=== PATIENT | male | born 1955 | race Caucasian/White ===

== ENCOUNTER → 2021-04-12 10:02 | Outpatient (BNVA) | payer OTHER, SELFPAY | PROVIDERS: Family Provider Family Medicine; Visit Provider Internal Medicine | DX: Z01.812 Encounter for preprocedural laboratory examination (principal); K51.90 Ulcerative colitis, unspecified, without complications; Z20.822 Contact with and (suspected) exposure to COVID-19 | CPT/HCPCS: 87635 ==

== ENCOUNTER 2021-04-16 08:28 | Day surgery (SDC) | payer OTHER, MEDICARE, MEDICAID, SELFPAY ==
--- NOTE | 2021-04-16 09:01 | ANES.PREANE2 ---
Pre-Anesthetic Assessment Pre-Anesthetic Assessment: Height/Weight: Height 1.8 m Preop Diagnosis: UC Proposed Procedure: Operation Date: 04/16/21 10:00 Proposed Procedures p Colonoscopy 38034 K51.90(Not Applicable) - Marquis Mcbride MD Was Beta Ehlene taken within 24 hours: N/A Was Clonidine taken within 24 hours: N/A Social: Social History: No alcohol and No tobacco Exam: Pre-Anes Outpt Exam: alert, oriented x 3, clear to auscultation bilaterally and regular rate & rhythm Airway: Submandibular: WNL Cervical ROM: WNL MP: 2 Dentition: False CV/HEM: CV/HEM: CAD and HTN GI: GI: GERD Comments: UC Metabolic: Metabolic: DM, Hyperlipidemia, Morbid obesity and Thyroid Anesthetic Plan: ASA status: 3 Anesthesia: MAC Risk of > 500 ml blood loss (7ml/kg in children): No PFSH Anesthesia PFSH: Medical History (Updated 04/12/21 @ 09:42 by Marquis Mcbride MD) Diabetes Hyperlipidemia Hypertension Ulcerative colitis Surgical History History of appendectomy 2005 History of colonoscopy 2019 Family History Father Cancer Grandmother Diabetes Other Hypertension Denies family history of CAD (coronary artery disease) Dementia Lung disease Stroke Social History Smoking and tobacco status: former smoker Second hand smoke exposure: No Alcohol intake: current Alcohol intake frequency: few times a month Desire information about alcohol rehabilitation?: No Lives independently: Yes Household members: spouse Marital status: Data Anesthesia Cardiac Studies: No Data to Display
[2021-04-16 09:02] VITALS: PULSE 68; RESP 18; TEMP 36.1; O2SAT 99
[2021-04-16 09:03] VITALS: BMI 37.8
[2021-04-16] MEDS: sodium chloride 0.9% 1,000 ML 30 ML IV (09:20)
[2021-04-16 09:25] LABS: Glucose Point of Care 139 mg/dL (70-110)
--- NOTE | 2021-04-16 10:27 | P.HP_ITS ---
Same Day Surgery H&P Indication for Procedure/HPI DATE OF PROCEDURE: April 16, 2021 CHIEF COMPLAINT/INDICATIONFOR SURGICAL PROCEDURE: Ulcerative colitis PREOP DIAGNOSIS: UC PLANNED PROCEDRUE: Operation Date: 04/16/21 10:00 Proposed Procedures p Colonoscopy 66312 K51.90(Not Applicable) - Marquis Mcbride MD Medications/Allergies* Home Medications Medication Instructions Recorded Confirmed Type aspirin 81 mg tablet,delayed 81 mg PO DAILY 04/02/21 04/13/21 History release cetirizine 10 mg tablet 10 mg PO DAILY PRN 04/02/21 04/13/21 History gabapentin 100 mg capsule 100 mg PO TID 04/02/21 04/13/21 History glipizide 10 mg tablet 10 mg PO DAILY 04/02/21 04/13/21 History glucose 4 gram chewable tablet 16 g PO Q15M PRN tab 04/02/21 04/13/21 History insulin glargine 100 unit/mL (3 18 unit SUBCUT DAILY ml 04/02/21 04/13/21 History mL) subcutaneous pen isosorbide mononitrate 60 mg 60 mg PO DAILY 04/02/21 04/13/21 History tablet,extended release 24 hr levothyroxine 150 mcg tablet 150 mcg PO DAILY 04/02/21 04/13/21 History metoprolol tartrate 100 mg tablet 50 mg PO BID tab 04/02/21 04/13/21 History omega-3 fatty acids 1,000 mg 1,000 mg PO BID 04/02/21 04/13/21 History capsule omeprazole 20 mg capsule,delayed 40 mg PO DAILY cap 04/02/21 04/13/21 History release simvastatin 80 mg tablet 80 mg PO DAILY 04/02/21 04/13/21 History spironolactone 25 mg tablet 25 mg PO DAILY 04/02/21 04/13/21 History tamsulosin 0.4 mg capsule 0.4 mg PO DAILY 04/02/21 04/13/21 History Allergies/Adverse Reactions Allergy/AdvReac Type Severity Reaction Status Date / Time metformin Allergy Unknown Unknown Verified 04/12/21 09:01 Penicillins Allergy Unknown Unknown Verified 04/12/21 09:01 Sulfa (Sulfonamide Allergy Unknown Unknown Verified 04/12/21 09:01 Antibiotics) terazosin Allergy Unknown Unknown Verified 04/12/21 09:01 Current Medications: Generic Name Dose Route Start Last Admin Trade Name Windy PRN Reason Stop Dose Admin Sodium Chloride 1,000 mls @ 30 mls/hr 04/16/21 09:00 04/16/21 09:20 Sodium Chloride 0.9% IV 04/17/21 08:59 30 mls/hr .Q24H DONNELL Administration Pertinent History/Comorbid Conditions* Medical History (Updated 04/12/21 @ 09:42 by Marquis Mcbride MD) Diabetes Hyperlipidemia Hypertension Ulcerative colitis Surgical History (Updated 04/02/21 @ 10:54 by Gilberto Smith MD) History of appendectomy 2005 History of colonoscopy 2019 Family History (Updated 04/02/21 @ 10:19 by Cheryl Amaro) Diabetes Grandmother Cancer Father Hypertension Denies family history of CAD (coronary artery disease) Dementia Lung disease Stroke Social History Smoking and tobacco status: former smoker Second hand smoke exposure: No Alcohol intake: current Alcohol intake frequency: few times a month Desire information about alcohol rehabilitation?: No Lives independently: Yes Household members: spouse Marital status: Pertinent Exam Findings alert, oriented x 3, clear to auscultation bilaterally, regular rate & rhythm, operative site marked and procedure specific exam findings Recommendations Surgery/Procedure today Coding Level of Care Code Acute Pediatric Acute Care Unit Nurse for Salma You
[2021-04-16 10:45] VITALS: BP 106/64; PULSE 58; RESP 16; TEMP 36.1; O2SAT 92
[2021-04-16 10:53] VITALS: BP 112/62; PULSE 53; RESP 16; O2SAT 98
--- NOTE | 2021-04-16 16:41 | ANE.PACU2 ---
Inpatient post-anesthesia follow up: Airway intact: Yes Vital signs: Temperature 97 F Pulse Rate 53 Respiratory Rate 16 Blood Pressure 112/62 Pulse Oximetry 98 Oxygen Delivery Me thod Room Air Oxygen Flow Rate Fraction of Inspir ed Oxygen Hydration adequate: Yes Nausea and vomiting: No Pain level: 1 Mental status: Baseline
== END 2021-04-16 11:20 | disposition home or self-care (01) ==
PROVIDERS: PCP Emergency Medicine Emergency Medical Services; Visit Provider Internal Medicine
PROC: 0DJD8ZZ Inspection of Lower Intestinal Tract, Via Natural or Artificial Opening Endoscopic (ICD-10-PCS; CPT 45378; principal; 2021-04-16 10:00)
DX: K51.311 Ulcerative (chronic) rectosigmoiditis with rectal bleeding (principal); K51.90 Ulcerative colitis, unspecified, without complications; Z79.82 Long term (current) use of aspirin; E11.9 Type 2 diabetes mellitus without complications; E78.5 Hyperlipidemia, unspecified; I10 Essential (primary) hypertension; Z79.4 Long term (current) use of insulin; Z87.891 Personal history of nicotine dependence; I25.10 Atherosclerotic heart disease of native coronary artery without angina pectoris; E66.01 Morbid (severe) obesity due to excess calories; Z68.37 Body mass index [BMI] 37.0-37.9, adult
CPT/HCPCS: 36416; 45380; 82962; 88305; 96360; J2704; J7030

== ENCOUNTER → 2021-05-07 11:05 | Day surgery (SDC) | payer OTHER, MEDICARE, MEDICAID, SELFPAY ==
[2021-05-07 11:37] VITALS: BP 132/66; PULSE 58; RESP 18; TEMP 36.1; O2SAT 99
== END ==
PROVIDERS: PCP Emergency Medicine Emergency Medical Services; Visit Provider Internal Medicine
DX: K51.90 Ulcerative colitis, unspecified, without complications (principal)
CPT/HCPCS: 96365; 96366; J7050; Q5104

== ENCOUNTER → 2021-05-21 10:48 | Day surgery (SDC) | payer OTHER, MEDICARE, MEDICAID, SELFPAY ==
[2021-05-21 11:03] VITALS: BP 126/63; PULSE 57; RESP 18; TEMP 37; O2SAT 97
== END ==
PROVIDERS: PCP Emergency Medicine Emergency Medical Services; Visit Provider Internal Medicine
DX: K51.90 Ulcerative colitis, unspecified, without complications (principal)
CPT/HCPCS: 96365; J7050; Q5104

== ENCOUNTER 2021-06-17 18:24 | Emergency (ER) | payer MEDICARE, MEDICAID, SELFPAY ==
[2021-06-17 18:36] VITALS: PULSE 83; RESP 83; TEMP 36.9; O2SAT 97; BMI 40.6
--- NOTE | 2021-06-17 18:46 | ED_ITS ---
HPI - Male Genitourinary General: Chief complaint: Urogenital-Male Stated complaint: blood in urine Time Seen by Provider: 06/17/21 18:46 History of Present Illness: HPI Narrative: 65-year-old male patient comes in today with complaints of blood in urine. Patient noted that this evening. Patient also complains of some right flank pain. Patient has a history of some BPH which he takes medication for. Patient reports some urinary frequency. Patient denies any nausea or fever. Patient appears well. Patient appears no acute distress. Patient does have a history of ulcerative colitis, hypertension, diabetes mellitus Associated symptoms: Reports hematuria Review of Systems General: Reports: 10 or more systems reviewed and unremarkable except in HPI and below : Reports: hematuria PFSH ED PFSH: Medical History Diabetes Hyperlipidemia Hypertension Ulcerative colitis Surgical History History of appendectomy 2004 History of colonoscopy 2019 Family History Father Cancer Grandmother Diabetes Other Hypertension Denies family history of CAD (coronary artery disease) Dementia Lung disease Stroke Social History Smoking and tobacco status: former smoker Second hand smoke exposure: No Alcohol intake: current Alcohol intake frequency: few times a month Desire information about alcohol rehabilitation?: No Lives independently: Yes Household members: spouse Marital status: Physical Exam Const: COMMON NORMALS: no acute distress and patient oriented x3 GENERAL APPEARANCE: cooperative HENMT: COMMON NORMALS: normocephalic and Normal external nose present HEAD & SCALP: normal to inspection and normocephalic NOSE: Normal external nose present Eye: GENERAL EYE: appearance normal, both eyes and all related structures Neck/C-Spine: COMMON NORMALS: full ROM Chest: COMMONS NORMALS: normal inspection of the chest Resp: COMMON NORMALS: normal respiratory effort EFFORT & INSPECTION: Yes able to speak in complete sentences Cardio: COMMON NORMALS: regular rate and regular rhythm RATE: regular rate RHYTHM: regular rhythm GI: COMMON NORMALS: non-tender : BLADDER/KIDNEY EXAM: Yes CVA tenderness on the right Back/Pelvis: COMMON NORMALS: thoracic and lumbar spine normal to inspection GENERAL BACK: Yes CVA tenderness Extremity: COMMON NORMALS: normal to inspection Neuro: COMMON NORMALS: patient oriented x3 and moves all extremities Psych: COMMON NORMALS: mental status grossly normal and cooperative Skin: COMMON NORMALS: no rashes or lesions noted GENERAL SKIN EXAM: no rashes or lesions noted Course Vital Signs: Vital signs: Vital Signs Temperature 98.2 F 06/17/21 20:05 Pulse Rate 64 06/17/21 20:05 Respiratory Rate 16 06/17/21 20:05 Blood Pressure 142/66 06/17/21 20:05 Pulse Oximetry 97 06/17/21 20:05 MDM - Male MDM Narrative: Medical decision making narrative: 65-year-old male patient comes in today with complaints of blood in his urine. Patient also reports some discomfort with urination. On exam abdomen soft nontender. Bowel sounds are present. Patient does have some right CVA tenderness. Differential diagnosis includes but not limited to cystitis, renal calculi, bladder carcinoma. Laboratory values noted a white count of 15.2. CMP was unremarkable. CT of the abdomen and pelvis noted some bladder wall thickening and a congenital abnormality of the bladder, urachal remnant. Urinalysis had a large amount of red blood cells and culture was submitted. Patient was started on Cipro 500 twice a day for 7 days. Patient was recommended to follow-up urology for further evaluation of cystitis with hematuria and abnormalities on CT scan. Patient reported understanding and agreed to plan. Lab Data: Labs: Lab Results 06/17/21 06/17/21 06/17/21 18:45 18:45 18:45 WBC 15.2 10^3/uL H 10 ^3/uL (4.0-10.0) RBC 4.91 10^6/uL 10^6 /uL (4.1-5.3) Hgb 14.2 g/dL g/dL (11.7-16.6) Hct 44.4 % % (42.0-52.0) MCV 90.4 fl fl (80-94) MCH 28.9 pg pg (28.0-34.0) MCHC 32.0 g/dL g/dL (30.0-36.0) RDW 15.4 % H % (12.1-15.1) Plt Count 244 10^3/cmm 10^3 /cmm (130-400) MPV 11.5 fL H fL (7.4-10.4) Neut % (Auto) 74.3 % % Lymph % (Auto) 15.4 % % [place] % (Auto) 7.1 % % Eos % (Auto) 2.4 % % Baso % (Auto) 0.5 % % Neut # (Auto) 11.30 10^3/uL H 1 0^3/uL (1.8-7.7) Lymph # (Auto) 2.3 10^3/uL 10^3/ uL (0.8-4.8) [place] # (Auto) 1.1 10^3/uL H 10^ 3/uL (0.2-0.9) Eos # (Auto) 0.4 10^3/uL 10^3/ uL (0.0-0.8) Baso # (Auto) 0.1 10^3/uL 10^3/ uL (0.0-0.1) Nucleated RBC % (a uto) 0 % % Nucleated RBCs # 0.0 /100WBC /100W BC Sodium 133 mmol/L L mmol /L (136-145) Potassium 4.1 mmol/L mmol/L (3.5-5.1) Chloride 97 mmol/L L mmol/ L (98-107) Carbon Dioxide 25 mmol/L mmol/L (22-29) Anion Gap 15.1 (5-19) BUN 13 mg/dL mg/dL (8-23) Creatinine 0.9 mg/dL mg/dL (0.7-1.2) GFR Calculation 85.2 mL/min L mL/ min (90-130) Glucose 164 mg/dL H mg/dL (65-115) Calculated Osmolal ity 280 mOsm/kg L mOs m/kg (285-295) Calcium 9.0 mg/dL mg/dL (8.5-10.5) Total Bilirubin 0.3 mg/dL mg/dL (0.15-1.2) AST 27 U/L U/L (0-40) ALT 28 U/L U/L (0-41) Alkaline Phosphata se 76 IU/L IU/L (40-130) Total Protein 7.8 g/dL g/dL (6.6-8.7) Albumin 4.2 g/dL g/dL (3.5-5.2) Globulin 3.6 g/dL g/dL (1.3-4.6) Urine Color Red (Yellow) Urine Appearance Bloody A (CLEAR) Urine pH 5 (5-7) Ur Specific Gravit y 1.020 (1.005-1.030) Urine Protein 3+ H (Negative) Urine Glucose (UA) Norm (Normal) Urine Ketones Negative (Negative) Urine Blood 3+ H (Negative) Urine Nitrate Negative (Negative) Urine Bilirubin Neg (Negative) Urine Urobilinogen Norm mg/dL mg/dL (Negative) Ur Leukocyte Desirae ase Negative (Negative) Urine RBC Too numerous to c nt /hpf H /hpf (0-2) Urine WBC 0-4 /hpf H /hpf (0-5) Ur Squamous Epith Cells None /hpf /hpf (0-5) Amorphous Sediment Not Reportable Urine Bacteria 2+ /hpf H /hpf (NONE) Discharge Plan Discharge Patient Disposition: Home Clinical Impression: Cystitis Hematuria Qualifiers: Hematuria type: unspecified type Qualified Code(s): R31.9 - Hematuria, uns pecified Condition: Stable Prescriptions: New Cipro 500 mg tablet 500 mg PO BID Qty: 14 RF: 0 No Action mesalamine 1.2 gram tablet,delayed release (DR/EC) 4.8 g PO DAILY Qty: 120 RF: 6 glucose 4 gram tablet,chewable 16 g PO Q15M PRN (Reason: Hypoglycemia) RF: 0 insulin glargine 100 unit/mL (3 mL) insulin pen 18 unit SUBCUT DAILY RF: 0 aspirin [Adult Aspirin Regimen] 81 mg tablet,delayed release (DR/EC) 81 mg PO DAILY RF: 0 cetirizine 10 mg tablet 10 mg PO DAILY PRN (Reason: Allergy Symptoms) RF: 0 omega-3 fatty acids [Fish Oil Concentrate] 1,000 mg capsule 1,000 mg PO BID RF: 0 gabapentin 100 mg capsule 100 mg PO TID RF: 0 glipizide 10 mg tablet 10 mg PO DAILY RF: 0 isosorbide mononitrate 60 mg tablet extended release 24 hr 60 mg PO DAILY RF: 0 levothyroxine [Synthroid] 150 mcg tablet 150 mcg PO DAILY RF: 0 metoprolol tartrate 100 mg tablet 50 mg PO BID RF: 0 simvastatin 80 mg tablet 80 mg PO DAILY RF: 0 spironolactone 25 mg tablet 25 mg PO DAILY RF: 0 tamsulosin [Flomax] 0.4 mg capsule 0.4 mg PO DAILY RF: 0 Renflexis 100 mg Recon Soln 300 mg IV DIRECTED RF: 0 Discharge Orders: Discharge ED (Routine); Ordered 06/17/21 Ordered By: Cj Corea Referrals: Marquis Mcbride MD [Primary Care Provider] - Discharge Diet: Usual diet Discharge Activity: Increase activity as tolerated Patient Instructions: Urinary Tract Infection in Men (ED), Opioid Safety Activity Restrictions/Additional Instructions: Home and rest. Drink plenty of fluids. Antibiotic as directed. Follow-up with urologist for further evaluation regarding the hematuria and abnormalities on the CT. Return to the ER for new concerns. Coding Level of Care Code ED Clam Shucking Machine Tender for Peteg Fwd Exam Comprehensive
[2021-06-17 18:52] VITALS: BP 150/83; PULSE 82; RESP 16; TEMP 36.9; O2SAT 95
--- NOTE | 2021-06-17 18:53 | CTR_ITS ---
PROCEDURE INFORMATION: Exam: CT Abdomen And Pelvis Without Contrast Exam date and time: 06/17/2021 6:53 PM Age: 65 years old Clinical indication: Prior surgery; Surgery date: 6+ months; Surgery type: Appy; Patient HX: C/O R flank pain and gross hematuria; Additional info: Right flank pain, hematuria TECHNIQUE: Imaging protocol: Computed tomography of the abdomen and pelvis without contrast. Radiation optimization: All CT scans at this facility use at least one of these dose optimization techniques: automated exposure control; mA and/or kV adjustment per patient size (includes targeted exams where dose is matched to clinical indication); or iterative reconstruction. COMPARISON: CT abdomen pelvis w con* [id number] 02/21/2015 3:34 PM RADIATION DOSE METRICS: Total DLP (mGy-cm): 1846.26 FINDINGS: Liver: Unremarkable.No mass. Gallbladder and bile ducts: Normal. No calcified stones. No ductal dilation. Pancreas: Normal. No ductal dilation. Spleen: The spleen is normal. Adrenal glands: The adrenal glands are normal. Kidneys and ureters: There is no evidence of hydronephrosis. There is no evidence of renal calcifications. No calculi are identified in the ureters or bladder. Stomach and bowel: There is no evidence of intestinal perforation or obstruction. The wall of the distal colon is mildly thickened but collapsed. There is lack of normal haustral pattern with stove pipe appearance of the distal colon that may indicate chronic ulcerative colitis. No wall thickening or induration of the pericolonic fat to suggest active inflammatory bowel disease. There is a fat halo sign indicating fat in the wall of the distal colon which is identified with chronic ulcerative colitis, Crohn's disease or obesity. Appendix: No evidence of appendicitis. Intraperitoneal space: Unremarkable. No free air. No significant fluid collection. Vasculature: Unremarkable.No abdominal aortic aneurysm. Lymph nodes: Unremarkable.No enlarged lymph nodes. Urinary bladder: There is nonspecific bladder wall thickening. This may be related to cystitis versus incomplete distention. No discrete bladder mass. 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 This has an increased risk of malignancy. Reproductive: Unremarkable as visualized. Bones/joints: There is no acute bony abnormality. There is chronic appearing mild anterior wedging of L2. There is also mild degenerative retrolisthesis of L2 on L3 and L3 on L4. Soft tissues: There is a fat-containing umbilical hernia. There is mild induration of the subcutaneous fat of the lower abdominal wall that may reflect recent subcutaneous injections. CT/CT kidney stone 54790 IMPRESSION: 1. There is nonspecific bladder wall thickening. This may be related to cystitis versus incomplete distention. No discrete bladder mass. 2. 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 This has an increased risk of malignancy. 3. The distal colon has characteristics that may indicate that the patient has underlying chronic ulcerative colitis without evidence of active inflammatory changes at this time. Please see above. Radiation Dose CTDIVOL = (mGy): DLP = 1846.26 (mGy-cm)
[2021-06-17 19:08] LABS: Basophils # 0.1 10^3/uL (0.0-0.1); Basophils % 0.5 %; Eosinophils # 0.4 10^3/uL (0.0-0.8); Eosinophils % 2.4 %; Hematocrit 44.4 % (42.0-52.0); Hemoglobin 14.2 g/dL (11.7-16.6); Lymphocytes # 2.3 10^3/uL (0.8-4.8); Lymphocytes % 15.4 %; Mean Corpuscular Hemoglobin 28.9 pg (28.0-34.0); Mean Corpuscular Volume 90.4 fl (80-94); Mean Platelet Volume 11.5 fL (7.4-10.4); Monocytes # 1.1 10^3/uL (0.2-0.9); Monocytes % 7.1 %; Neutrophils % 74.3 %; Nucleated Red Blood Cells % 0 %; Platelet Count 244 10^3/cmm (130-400); Protein Urine 3+ (Negative); Red Blood Count 4.91 10^6/uL (4.1-5.3); Red Cell Distribution Width 15.4 % (12.1-15.1); Urine Appearance Bloody (CLEAR); Urine Color Red (Yellow); White Blood Count 15.2 10^3/uL (4.0-10.0); pH Urine 5 (5-7)
[2021-06-17 19:09] LABS: Add Urine Microscopic? YES; Bilirubin Urine Neg (Negative); Blood Urine 3+ (Negative); Glucose Urine UA Norm (Normal); Ketones Urine Negative (Negative); Leukocyte Esterase Urine Negative (Negative); Nitrate Urine Negative (Negative); RBC Urine TOO NUMEROUS TO CNT /hpf (0-2); Urobilinogen Urine Norm (Negative)
[2021-06-17 19:11] LABS: Bacteria Urine 2+ /hpf; WBC Urine 0-4 /hpf (0-5)
[2021-06-17 19:12] LABS: Add Urine Culture? Yes
[2021-06-17 19:16] VITALS: BP 143/71; PULSE 71; RESP 16; O2SAT 96
[2021-06-17 19:28] LABS: Alanine Aminotransferase 28 U/L (0-41); Albumin Level 4.2 g/dL (3.5-5.2); Alkaline Phosphatase 76 IU/L (40-130); Aspartate Amino Transferase 27 U/L (0-40); Blood Urea Nitrogen 13 mg/dL (8-23); Carbon Dioxide 25 mmol/L (22-29); Chloride 97 mmol/L (98-107); Globulin 3.6 g/dL (1.3-4.6); Glomerular Filtration Rate 85.2 mL/min (90-130); Glucose 164 mg/dL (65-115); Osmolality Calculated 280 mOsm/kg (285-295); Sodium 133 mmol/L (136-145); Total Bilirubin 0.3 mg/dL (0.15-1.2); Total Protein 7.8 g/dL (6.6-8.7)
[2021-06-17 19:33] LABS: Anion Gap 15.1 (5-19); Potassium 4.1 mmol/L (3.5-5.1)
[2021-06-17 20:05] VITALS: BP 142/66; PULSE 64; RESP 16; TEMP 36.8; O2SAT 97
[2021-06-17] MEDS: ciprofloxacin 500 mg Tablet PO (20:24)
[2021-06-17 20:49] VITALS: BP 153/87; PULSE 68; RESP 18; TEMP 37.2; O2SAT 96
--- NOTE | 2021-06-18 10:56 | DCPLANNER ---
strategic development manager had message to schedule a follow up appointment for patient with Dr. Ryan. strategic development manager called the office of Dr. Ryan, spoke with Jaylen, gave clinic patients information. strategic development manager was told that patients information would be printed and reviewed. Clinic will call patient with appointment information.
--- NOTE | 2021-06-22 08:05 | DCPLANNER ---
Patient has a follow up appointment scheduled for Tuesday, June 29, 2021 at 10:[address] Ryan. Clinic will call patient with appointment information.
--- NOTE | 2021-08-02 14:29 | DCPLANNER ---
Patient had a follow up appointment scheduled for 06.29.[address] Ryan - patient did attend appointment.
== END 2021-06-17 20:52 | disposition home or self-care (01) ==
PROVIDERS: Emergency Provider Nurse Practitioner Family; PCP Internal Medicine
DX: N30.91 Cystitis, unspecified with hematuria (principal); Z79.82 Long term (current) use of aspirin; Z79.4 Long term (current) use of insulin; E11.9 Type 2 diabetes mellitus without complications; E78.5 Hyperlipidemia, unspecified; I10 Essential (primary) hypertension; Z87.891 Personal history of nicotine dependence
CPT/HCPCS: 74176; 80053; 81001; 85025; 87077; 87086; 87186; 99283

== ENCOUNTER → 2021-06-18 11:41 | Day surgery (SDC) | payer OTHER, MEDICARE, MEDICAID, SELFPAY ==
[2021-06-18 12:05] VITALS: BP 107/63; PULSE 66; RESP 18; TEMP 36.6; O2SAT 96; BMI 38.7
== END ==
PROVIDERS: PCP Internal Medicine; Visit Provider Internal Medicine
DX: K51.90 Ulcerative colitis, unspecified, without complications (principal)
CPT/HCPCS: 96365; 96366; J7050; Q5104

== ENCOUNTER → 2021-06-29 11:44 | Outpatient (BNVA) | payer MEDICARE, MEDICAID, SELFPAY | PROVIDERS: PCP Internal Medicine; Visit Provider Urology | DX: N30.90 Cystitis, unspecified without hematuria (principal); R31.0 Gross hematuria | CPT/HCPCS: 81003; 87086; 88112 ==

== ENCOUNTER → 2021-07-02 11:07 | Day surgery (SDC) | payer MEDICARE, MEDICAID, SELFPAY ==
[2021-07-02 11:22] VITALS: BMI 38.7
== END ==
PROVIDERS: PCP Internal Medicine; Visit Provider Internal Medicine
DX: K51.90 Ulcerative colitis, unspecified, without complications (principal)
CPT/HCPCS: 96365; 96366; J7050; Q5104

== ENCOUNTER → 2021-08-27 10:50 | Day surgery (SDC) | payer MEDICARE, MEDICAID, SELFPAY ==
[2021-08-27 11:20] VITALS: BP 146/77; PULSE 55; RESP 18; TEMP 36.4; O2SAT 95; BMI 36.2
== END ==
PROVIDERS: PCP Internal Medicine; Visit Provider Internal Medicine
DX: K51.90 Ulcerative colitis, unspecified, without complications (principal)
CPT/HCPCS: 96365; 96366; J7050; Q5104

== ENCOUNTER → 2021-10-22 11:12 | Day surgery (SDC) | payer MEDICARE, MEDICAID, SELFPAY ==
[2021-10-22 11:48] VITALS: BP 157/94; PULSE 63; RESP 18; TEMP 36.9; O2SAT 96
== END ==
PROVIDERS: PCP Internal Medicine; Visit Provider Internal Medicine
DX: K51.90 Ulcerative colitis, unspecified, without complications (principal)
CPT/HCPCS: 96365; 96366; J7050; Q5104

== ENCOUNTER → 2021-12-17 12:24 | Day surgery (SDC) | payer MEDICARE, MEDICAID, SELFPAY ==
[2021-12-17 12:58] VITALS: BP 173/84; PULSE 64; RESP 18; TEMP 36.1; O2SAT 96
== END ==
PROVIDERS: PCP Internal Medicine; Visit Provider Internal Medicine
DX: K51.311 Ulcerative (chronic) rectosigmoiditis with rectal bleeding (principal)
CPT/HCPCS: 96365; 96366; J7050; Q5104

== ENCOUNTER → 2022-01-08 11:41 | Day surgery (SDC) | payer MEDICARE, MEDICAID, SELFPAY ==
[2022-01-08 11:56] VITALS: BP 149/70; PULSE 64; RESP 18; TEMP 36.3; O2SAT 97
== END ==
PROVIDERS: PCP Internal Medicine; Visit Provider Internal Medicine
DX: K51.311 Ulcerative (chronic) rectosigmoiditis with rectal bleeding (principal)
CPT/HCPCS: 96365; 96366; J7050; Q5104

== ENCOUNTER → 2022-02-13 10:13 | Day surgery (SDC) | payer MEDICARE, MEDICAID, SELFPAY ==
[2022-02-13 10:31] VITALS: BP 117/61; PULSE 58; RESP 18; TEMP 36.9; O2SAT 95; BMI 34.8
== END ==
PROVIDERS: PCP Internal Medicine; Visit Provider Internal Medicine
DX: K51.90 Ulcerative colitis, unspecified, without complications (principal)
CPT/HCPCS: 96365; 96366; J7050; Q5104

== ENCOUNTER → 2022-04-10 10:46 | Day surgery (SDC) | payer MEDICARE, MEDICAID, SELFPAY ==
[2022-04-10 11:04] VITALS: BP 124/67; PULSE 61; RESP 18; TEMP 36.8; O2SAT 95
== END ==
PROVIDERS: PCP Internal Medicine; Visit Provider Internal Medicine
DX: K51.311 Ulcerative (chronic) rectosigmoiditis with rectal bleeding (principal)
CPT/HCPCS: 96365; 96366; J7050; Q5104

== ENCOUNTER → 2022-04-17 07:42 | Day surgery (SDC) | payer MEDICARE, MEDICAID, SELFPAY ==
[2022-04-17] MEDS: vedolizumab 300 MG in sodium chloride 0.9% 250 ML 250 MG IV (08:00)
[2022-04-17 08:02] VITALS: BP 126/64; PULSE 56; RESP 18; TEMP 36.3; O2SAT 95
== END ==
PROVIDERS: PCP Internal Medicine; Visit Provider Internal Medicine
DX: K51.90 Ulcerative colitis, unspecified, without complications (principal)
CPT/HCPCS: 96365; J3380; J7050

== ENCOUNTER → 2022-04-24 11:31 | Day surgery (SDC) | payer MEDICARE, MEDICAID, SELFPAY ==
[2022-04-24] MEDS: vedolizumab 300 MG in sodium chloride 0.9% 250 ML 500 MG IV (11:56)
[2022-04-24 11:59] VITALS: BP 138/71; PULSE 63; RESP 18; TEMP 36.7; O2SAT 95
== END ==
PROVIDERS: PCP Internal Medicine; Visit Provider Internal Medicine
DX: K51.311 Ulcerative (chronic) rectosigmoiditis with rectal bleeding (principal)
CPT/HCPCS: 96365; J3380; J7050

== ENCOUNTER → 2022-05-29 11:11 | Day surgery (SDC) | payer MEDICARE, MEDICAID, SELFPAY ==
[2022-05-29] MEDS: vedolizumab 300 MG in sodium chloride 0.9% 250 ML 500 MG IV (11:28)
[2022-05-29 11:33] VITALS: BP 106/59; PULSE 54; RESP 18; TEMP 36.9; O2SAT 95
== END ==
PROVIDERS: PCP Internal Medicine; Visit Provider Internal Medicine
DX: K51.311 Ulcerative (chronic) rectosigmoiditis with rectal bleeding (principal)
CPT/HCPCS: 96365; J3380; J7050

== ENCOUNTER → 2022-06-12 11:31 | Day surgery (SDC) | payer MEDICARE, MEDICAID, SELFPAY ==
[2022-06-12] MEDS: vedolizumab 300 MG in sodium chloride 0.9% 250 ML 500 MG IV (11:44)
[2022-06-12 11:48] VITALS: BP 135/71; PULSE 55; RESP 18; TEMP 36.7; O2SAT 95
== END ==
PROVIDERS: PCP Internal Medicine; Visit Provider Internal Medicine
DX: K51.311 Ulcerative (chronic) rectosigmoiditis with rectal bleeding (principal)
CPT/HCPCS: 96365; J3380; J7050

== ENCOUNTER → 2022-08-07 11:29 | Day surgery (SDC) | payer MEDICARE, MEDICAID, SELFPAY ==
[2022-08-07] MEDS: vedolizumab 300 MG in sodium chloride 0.9% 250 ML 500 MG IV (11:44)
[2022-08-07 11:48] VITALS: BP 140/77; PULSE 70; RESP 18; TEMP 36.6; O2SAT 93
== END ==
PROVIDERS: PCP Internal Medicine; Visit Provider Internal Medicine
DX: K51.311 Ulcerative (chronic) rectosigmoiditis with rectal bleeding (principal)
CPT/HCPCS: 96365; J3380; J7050

== ENCOUNTER → 2022-09-11 11:13 | Outpatient (BNVA) | payer MEDICARE, MEDICAID, SELFPAY | PROVIDERS: PCP Family Medicine Adult Medicine; Visit Provider Emergency Medicine | DX: R39.9 Unspecified symptoms and signs involving the genitourinary system (principal); N10 Acute pyelonephritis | CPT/HCPCS: 81000; 87077; 87086; 87184 ==

== ENCOUNTER → 2022-10-02 11:38 | Day surgery (SDC) | payer MEDICARE, MEDICAID, SELFPAY ==
[2022-10-02 11:47] VITALS: BP 132/73; PULSE 74; RESP 16; TEMP 36.4; O2SAT 95
[2022-10-02] MEDS: vedolizumab 300 MG in sodium chloride 0.9% 250 ML 500 MG IV (11:57)
== END ==
PROVIDERS: PCP Family Medicine Adult Medicine; Visit Provider Internal Medicine
DX: K51.311 Ulcerative (chronic) rectosigmoiditis with rectal bleeding (principal)
CPT/HCPCS: 96365; J3380; J7050

== ENCOUNTER → 2022-11-12 07:45 | Outpatient (BNVA) | payer MEDICARE, MEDICAID, SELFPAY | PROVIDERS: PCP Family Medicine Adult Medicine; Visit Provider Family Medicine Adult Medicine | DX: E11.9 Type 2 diabetes mellitus without complications (principal); E78.5 Hyperlipidemia, unspecified; I10 Essential (primary) hypertension; K76.9 Liver disease, unspecified; E03.9 Hypothyroidism, unspecified; E66.9 Obesity, unspecified | CPT/HCPCS: 80053; 80061; 83036; 84443; 85025 ==

== ENCOUNTER → 2022-11-19 09:37 | Outpatient (BNVA) | payer MEDICARE, MEDICAID, SELFPAY | PROVIDERS: PCP Family Medicine Adult Medicine; Visit Provider Surgery | DX: K51.311 Ulcerative (chronic) rectosigmoiditis with rectal bleeding (principal) | CPT/HCPCS: 99203 ==

== ENCOUNTER → 2022-11-27 11:29 | Day surgery (SDC) | payer MEDICARE, MEDICAID, SELFPAY ==
[2022-11-27] MEDS: vedolizumab 300 MG in sodium chloride 0.9% 250 ML 500 MG IV (11:51)
[2022-11-27 11:54] VITALS: BP 129/77; PULSE 73; RESP 18; TEMP 36.6; O2SAT 97
== END ==
PROVIDERS: PCP Family Medicine Adult Medicine; Visit Provider Family Medicine Adult Medicine
DX: K51.311 Ulcerative (chronic) rectosigmoiditis with rectal bleeding (principal)
CPT/HCPCS: 96365; J3380; J7050

== ENCOUNTER 2022-12-25 05:26 | Day surgery (SDC) | payer MEDICARE, MEDICAID, SELFPAY ==
[2022-12-23 10:32] VITALS: BMI 37.5
[2022-12-25] MEDS: sodium chloride 0.9% 1,000 ML 30 ML IV (06:18)
[2022-12-25 06:21] VITALS: BP 121/65; PULSE 54; RESP 17; TEMP 36.1; O2SAT 95
[2022-12-25 06:23] LABS: Glucose Point of Care 161 mg/dL (70-110)
--- NOTE | 2022-12-25 06:48 | PM.HP ---
Providers/Chief Complaint Primary Care Provider: Darrin Jones MD Chief Complaint: K51.311 History of Present Illness Gerhard Carpio is a 67 year old male here for a screening colonoscopy Medications/Allergies Home Medications Medication Instructions Recorded Confirmed Last Taken Type glucose 4 gram chewable tablet 16 g PO Q15M PRN Hypoglycemia 04/02/21 12/23/22 11/27/22 History glipizide 10 mg tablet 20 mg PO BID 06/29/21 12/23/22 12/23/22 History aspirin 81 mg tablet,delayed 81 mg PO DAILY #90 tabs 11/25/22 12/23/22 12/23/22 Rx release (Adult Aspirin Regimen) cetirizine 10 mg tablet 10 mg PO DAILY PRN Allergy 11/25/22 12/23/22 12/23/22 Rx Symptoms #90 tabs empagliflozin 25 mg tablet 25 mg PO QAM #30 tabs 11/25/22 12/23/22 12/23/22 Rx (Jardiance) gabapentin 100 mg capsule 100 mg PO TID #90 caps 11/25/22 12/23/22 12/23/22 Rx insulin glargine 100 unit/mL (3 18 unit (0.18 mL) SUBCUT DAILY #15 11/25/22 12/23/22 12/23/22 Rx mL) subcutaneous pen mL isosorbide mononitrate 60 mg 60 mg PO BID #60 tabs 11/25/22 12/23/22 12/23/22 Rx tablet,extended release 24 hr levothyroxine 175 mcg tablet 175 mcg PO DAILY Low thyroid #30 11/25/22 12/23/22 12/23/22 Rx tabs metoprolol tartrate 100 mg tablet 50 mg PO BID #60 tabs 11/25/22 12/23/22 12/23/22 Rx simvastatin 80 mg tablet 80 mg PO DAILY #30 tabs 11/25/22 12/23/22 12/23/22 Rx tamsulosin 0.4 mg capsule (Flomax) 0.4 mg PO DAILY #30 caps 11/25/22 12/23/22 12/23/22 Rx vedolizumab 300 mg intravenous 300 mg IV .Q8w rectal bleeding #1 11/25/22 12/23/22 11/27/22 Rx solution (Entyvio) ea mesalamine 1.2 gram tablet,delayed 2.4 g PO DAILY #60 tabs 11/28/22 12/23/22 12/23/22 Rx release omeprazole 20 mg tablet,delayed 40 mg PO DAILY #60 tabs 12/04/22 12/23/22 12/23/22 Rx release omega-3 fatty acids-vitamin E 1 cap PO DAILY 12/23/22 12/23/22 12/23/22 History 1,000 mg capsule Allergies Allergy/AdvReac Type Severity Reaction Status Date / Time metformin Allergy Unknown Unknown Verified 12/23/22 10:07 Penicillins Allergy Unknown Unknown Verified 12/23/22 10:07 Sulfa (Sulfonamide Allergy Unknown Unknown Verified 12/23/22 10:07 Antibiotics) terazosin Allergy Unknown Unknown Verified 12/23/22 10:07 PFSH Acute PFSH: Medical History (Updated 12/25/22 @ 06:49 by Richardson Patterson DO) Benign prostatic hyperplasia Chronic liver disease Dental caries associated with enamel hypomineralization Diabetes Diabetic neuropathy associated with type 2 diabetes mellitus Esophageal reflux Former smoker Gastro-esophageal reflux disease with esophagitis Gross hematuria Hyperlipidemia Hypertension Hypothyroidism Obesity Ulcerative colitis Yeast dermatitis of penis Surgical History History of appendectomy 2005 History of colonoscopy 2019 Family History Father , AT AGE 72 Cancer Grandmother Diabetes Mother No problems noted. Other Hypertension Social History Smoking and tobacco status: former smoker Alcohol intake: current Alcohol intake frequency: holidays/special occasions only Marital status: Current occupational status: retired and disabled Vitals/I&O/Wt Last Vital Signs Temp 97.0 F L 12/25/22 06:21 Pulse 54 L 12/25/22 06:21 Resp 17 12/25/22 06:21 BP 121/65 12/25/22 06:21 Pulse Ox 95 12/25/22 06:21 O2 Del Method 12/25/22 06:21 Weight last 48 hrs Weight 269 lb A&P Assessment and plan (1) Colon cancer screening: Plan Colonoscopy Attestations Medical Necessity Statement*: Home Coding Level of Care Code Acute Code for Chg Fwd Diagnoses Colon cancer screening Z12.11
--- NOTE | 2022-12-25 06:51 | ANES.PREANE2 ---
Pre-Anesthetic Assessment Height/Weight: Height 1.8 m Weight 122.016 kg Temp Pulse Resp BP Pulse Ox O2 Del Method 97.0 F L 54 L 17 121/65 95 12/25/22 06:21 12/25/22 06:21 12/25/22 06:21 12/25/22 06:21 12/25/22 06:21 12/25/22 06:21 Preop Diagnosis: Hx ulcerative colitis Operation Date: 12/25/22 07:00 Proposed Procedures p 41104 colon K51.311(Not Applicable) - Richardson Patterson, DO Was Beta Helene taken within 24 hours: Yes Was Clonidine taken within 24 hours: N/A Last intake: Intake Last Liquid Date 12/24/22 Last Liquid Time 22:00 Last Solid Date 12/23/22 Last Solid Time 16:00 Social No alcohol and No tobacco Former smoker Airway Submandibular: within normal limits Cervical ROM: within normal limits Mallampati: Class II Dentition: false Comments: Comments: upper plate History/ROS No significant history except as noted and No significant complaints Pulmonary None reported CV/HEM Coronary Artery Disease, Hypertension and Myocardial Infarction None reported Hepatic None reported GI Gastroesophageal Reflux Disease Metabolic Diabetes Mellitus, Morbid Obesity and Thyroid Disease [facility] [place] None reported Neuropsych Neuropathy Anesthetic Plan ASA status: 3 Anesthesia: Anesthesia Evaluation and MAC Risk of > 500 ml blood loss (7ml/kg in children): No Medications/Allergies Home Medications Medication Instructions Recorded Confirmed Last Taken Type glucose 4 gram chewable tablet 16 g PO Q15M PRN Hypoglycemia 04/02/21 12/23/22 11/27/22 History glipizide 10 mg tablet 20 mg PO BID 06/29/21 12/23/22 12/23/22 History aspirin 81 mg tablet,delayed 81 mg PO DAILY #90 tabs 11/25/22 12/23/22 12/23/22 Rx release (Adult Aspirin Regimen) cetirizine 10 mg tablet 10 mg PO DAILY PRN Allergy 11/25/22 12/23/22 12/23/22 Rx Symptoms #90 tabs empagliflozin 25 mg tablet 25 mg PO QAM #30 tabs 11/25/22 12/23/22 12/23/22 Rx (Jardiance) gabapentin 100 mg capsule 100 mg PO TID #90 caps 11/25/22 12/23/22 12/23/22 Rx insulin glargine 100 unit/mL (3 18 unit (0.18 mL) SUBCUT DAILY #15 11/25/22 12/23/22 12/23/22 Rx mL) subcutaneous pen mL isosorbide mononitrate 60 mg 60 mg PO BID #60 tabs 11/25/22 12/23/22 12/23/22 Rx tablet,extended release 24 hr levothyroxine 175 mcg tablet 175 mcg PO DAILY Low thyroid #30 11/25/22 12/23/22 12/23/22 Rx tabs metoprolol tartrate 100 mg tablet 50 mg PO BID #60 tabs 11/25/22 12/23/22 12/23/22 Rx simvastatin 80 mg tablet 80 mg PO DAILY #30 tabs 11/25/22 12/23/22 12/23/22 Rx tamsulosin 0.4 mg capsule (Flomax) 0.4 mg PO DAILY #30 caps 11/25/22 12/23/22 12/23/22 Rx vedolizumab 300 mg intravenous 300 mg IV .Q8w rectal bleeding #1 11/25/22 12/23/22 11/27/22 Rx solution (Entyvio) ea mesalamine 1.2 gram tablet,delayed 2.4 g PO DAILY #60 tabs 11/28/22 12/23/22 12/23/22 Rx release omeprazole 20 mg tablet,delayed 40 mg PO DAILY #60 tabs 12/04/22 12/23/22 12/23/22 Rx release omega-3 fatty acids-vitamin E 1 cap PO DAILY 12/23/22 12/23/22 12/23/22 History 1,000 mg capsule Allergies Allergy/AdvReac Type Severity Reaction Status Date / Time metformin Allergy Unknown Unknown Verified 12/23/22 10:07 Penicillins Allergy Unknown Unknown Verified 12/23/22 10:07 Sulfa (Sulfonamide Allergy Unknown Unknown Verified 12/23/22 10:07 Antibiotics) terazosin Allergy Unknown Unknown Verified 12/23/22 10:07 Current Medications Generic Name Dose Route Start Last Admin Trade Name Freq PRN Reason Stop Dose Admin Sodium Chloride 1,000 mls @ 30 mls/hr 12/25/22 06:00 12/25/22 06:18 Sodium Chloride 0.9% IV 12/26/22 05:59 30 mls/hr .Q24H DONNELL Administration PFSH Anesthesia Medical History (Updated 12/25/22 @ 06:49 by Richardson Patterson DO) Benign prostatic hyperplasia Chronic liver disease Dental caries associated with enamel hypomineralization Diabetes Diabetic neuropathy associated with type 2 diabetes mellitus Esophageal reflux Former smoker Gastro-esophageal reflux disease with esophagitis Gross hematuria Hyperlipidemia Hypertension Hypothyroidism Obesity Ulcerative colitis Yeast dermatitis of penis Surgical History History of appendectomy 2004 History of colonoscopy 2019 Family History Father , AT AGE 72 Cancer Grandmother Diabetes Mother No problems noted. Other Hypertension Social History Smoking and tobacco status: former smoker Alcohol intake: current Alcohol intake frequency: holidays/special occasions only Marital status: Current occupational status: retired and disabled Data Anesthesia Cardiac Studies: No Data to Display
[2022-12-25 07:45] VITALS: BP 141/90; PULSE 65; RESP 20; TEMP 36.1; O2SAT 94
[2022-12-25 07:52] VITALS: BP 113/71; PULSE 66; RESP 20; O2SAT 97
--- NOTE | 2022-12-25 13:13 | ANE.PACU2 ---
Inpatient post-anesthesia follow up: Airway intact: Yes Vital signs: Temperature 97.0 F Pulse Rate 66 Respiratory Rate 20 Blood Pressure 113/71 Pulse Oximetry 97 Oxygen Delivery Me thod Nasal Cannula Oxygen Flow Rate 4 Fraction of Inspir ed Oxygen Hydration adequate: Yes Nausea and vomiting: No Pain level: 1 Mental status: Baseline
== END 2022-12-25 08:12 | disposition home or self-care (01) ==
PROVIDERS: PCP Family Medicine Adult Medicine; Visit Provider Surgery
PROC: 0DJD8ZZ Inspection of Lower Intestinal Tract, Via Natural or Artificial Opening Endoscopic (ICD-10-PCS; CPT 45378; principal; 2022-12-25 07:00)
DX: K51.311 Ulcerative (chronic) rectosigmoiditis with rectal bleeding (principal); K62.1 Rectal polyp; Z79.82 Long term (current) use of aspirin; Z79.84 Long term (current) use of oral hypoglycemic drugs; Z79.4 Long term (current) use of insulin; N40.0 Benign prostatic hyperplasia without lower urinary tract symptoms; E11.40 Type 2 diabetes mellitus with diabetic neuropathy, unspecified; Z87.891 Personal history of nicotine dependence; E78.5 Hyperlipidemia, unspecified; I10 Essential (primary) hypertension; E03.9 Hypothyroidism, unspecified; E66.01 Morbid (severe) obesity due to excess calories; Z68.37 Body mass index [BMI] 37.0-37.9, adult; I25.10 Atherosclerotic heart disease of native coronary artery without angina pectoris; K21.9 Gastro-esophageal reflux disease without esophagitis
CPT/HCPCS: 36416; 45385; 82962; 88305; J2704; J3490; J7030

== ENCOUNTER → 2023-01-07 12:17 | Outpatient (BNVA) | payer MEDICARE, MEDICAID, SELFPAY | PROVIDERS: PCP Family Medicine Adult Medicine; Visit Provider Surgery | DX: K51.311 Ulcerative (chronic) rectosigmoiditis with rectal bleeding (principal); K63.5 Polyp of colon | CPT/HCPCS: 99212 ==

== ENCOUNTER → 2023-01-22 11:22 | Day surgery (SDC) | payer MEDICARE, MEDICAID, SELFPAY ==
[2023-01-22] MEDS: vedolizumab 300 MG in sodium chloride 0.9% 250 ML 500 MG IV (11:43)
[2023-01-22 11:51] VITALS: BP 95/47; PULSE 54; RESP 18; TEMP 36.3; O2SAT 95
== END ==
PROVIDERS: PCP Family Medicine Adult Medicine; Visit Provider Internal Medicine
DX: K51.311 Ulcerative (chronic) rectosigmoiditis with rectal bleeding (principal); Z79.899 Other long term (current) drug therapy
CPT/HCPCS: 96365; J3380; J7050

== ENCOUNTER → 2023-03-13 09:56 | Outpatient (BNVA) | payer MEDICARE, MEDICAID, SELFPAY | PROVIDERS: PCP Family Medicine Adult Medicine; Visit Provider Podiatrist Foot & Ankle Surgery | DX: E11.49 Type 2 diabetes mellitus with other diabetic neurological complication (principal); M76.821 Posterior tibial tendinitis, right leg; M21.621 Bunionette of right foot; M21.622 Bunionette of left foot; Z79.4 Long term (current) use of insulin | CPT/HCPCS: 73600; 73630; 99204 ==

== ENCOUNTER → 2023-03-18 13:45 | Outpatient (BNVA) | payer MEDICARE, MEDICAID, SELFPAY | PROVIDERS: PCP Family Medicine Adult Medicine; Visit Provider Family Medicine Adult Medicine | DX: E11.49 Type 2 diabetes mellitus with other diabetic neurological complication (principal); E03.9 Hypothyroidism, unspecified; I10 Essential (primary) hypertension; E78.5 Hyperlipidemia, unspecified; N18.2 Chronic kidney disease, stage 2 (mild) | CPT/HCPCS: 80048; 83036; 84443 ==

== ENCOUNTER → 2023-03-19 11:30 | Day surgery (SDC) | payer MEDICARE, MEDICAID, SELFPAY ==
[2023-03-19] MEDS: vedolizumab 300 MG in sodium chloride 0.9% 250 ML 500 MG IV (11:47)
[2023-03-19 11:50] VITALS: BP 133/68; PULSE 52; RESP 18; TEMP 35.9; O2SAT 96
== END ==
LOC: GILAB 11:32
PROVIDERS: PCP Family Medicine Adult Medicine; Visit Provider Internal Medicine
DX: K51.311 Ulcerative (chronic) rectosigmoiditis with rectal bleeding (principal); Z79.899 Other long term (current) drug therapy
CPT/HCPCS: 96365; J3380; J7050

== ENCOUNTER → 2023-05-14 11:22 | Day surgery (SDC) | payer MEDICARE, MEDICAID, SELFPAY ==
[2023-05-14 11:42] VITALS: BP 124/64; PULSE 59; RESP 18; TEMP 36.6; O2SAT 97
[2023-05-14] MEDS: vedolizumab 300 MG in sodium chloride 0.9% 250 ML 500 MG IV (11:59)
== END ==
PROVIDERS: PCP Family Medicine Adult Medicine; Visit Provider Internal Medicine
DX: K51.311 Ulcerative (chronic) rectosigmoiditis with rectal bleeding (principal); Z79.899 Other long term (current) drug therapy
CPT/HCPCS: 96365; J3380; J7050

== ENCOUNTER → 2023-05-20 09:19 | Outpatient (BNVA) | payer MEDICARE, MEDICAID, SELFPAY | PROVIDERS: PCP Family Medicine Adult Medicine; Visit Provider Family Medicine Adult Medicine | DX: N18.2 Chronic kidney disease, stage 2 (mild) (principal); I10 Essential (primary) hypertension; K76.9 Liver disease, unspecified; E03.9 Hypothyroidism, unspecified; E11.49 Type 2 diabetes mellitus with other diabetic neurological complication; E11.9 Type 2 diabetes mellitus without complications | CPT/HCPCS: 80053; 83036; 84443 ==

== ENCOUNTER → 2023-07-07 11:19 | Day surgery (SDC) | payer MEDICARE, MEDICAID, SELFPAY ==
[2023-07-07] MEDS: vedolizumab 300 MG in sodium chloride 0.9% 250 ML 500 MG IV (11:33)
[2023-07-07 11:40] VITALS: BP 90/74; PULSE 58; RESP 18; TEMP 36.1; O2SAT 96
== END ==
PROVIDERS: PCP Family Medicine Adult Medicine; Visit Provider Internal Medicine
DX: K51.311 Ulcerative (chronic) rectosigmoiditis with rectal bleeding (principal)
CPT/HCPCS: 96365; J3380; J7050

== ENCOUNTER 2023-09-02 09:28 | Oncology outpatient (recurring) (ONCR) | payer MEDICARE, MEDICAID, SELFPAY ==
[2023-09-02 09:45] VITALS: BP 133/79; PULSE 62; RESP 18; TEMP 36.9; O2SAT 97
[2023-09-02] MEDS: vedolizumab 300 MG in sodium chloride 0.9% 250 ML 500 MG IV (10:44)
[2023-09-02 11:25] VITALS: BP 110/63; PULSE 53; RESP 16; TEMP 36.7; O2SAT 98
== END 2023-09-21 23:59 | disposition home or self-care (01) ==
PROVIDERS: PCP Family Medicine Adult Medicine; Visit Provider Family Medicine Adult Medicine
DX: K51.311 Ulcerative (chronic) rectosigmoiditis with rectal bleeding (principal)
CPT/HCPCS: 96413; J3380; J7050

== ENCOUNTER → 2023-10-07 10:01 | Outpatient (BNVA) | payer MEDICARE, MEDICAID, SELFPAY | PROVIDERS: PCP Family Medicine Adult Medicine; Visit Provider Family Medicine Adult Medicine | DX: E11.49 Type 2 diabetes mellitus with other diabetic neurological complication (principal); E03.9 Hypothyroidism, unspecified; M25.569 Pain in unspecified knee; G89.29 Other chronic pain; S89.91XA Unspecified injury of right lower leg, initial encounter; K51.90 Ulcerative colitis, unspecified, without complications; N18.2 Chronic kidney disease, stage 2 (mild); N40.0 Benign prostatic hyperplasia without lower urinary tract symptoms | CPT/HCPCS: 73562 ==

== ENCOUNTER → 2023-10-21 11:18 | Outpatient (BNVA) | payer MEDICARE, SELFPAY | PROVIDERS: PCP Family Medicine Adult Medicine; Visit Provider Family Medicine Adult Medicine | DX: N18.2 Chronic kidney disease, stage 2 (mild) (principal); E11.42 Type 2 diabetes mellitus with diabetic polyneuropathy; Z79.4 Long term (current) use of insulin; E78.5 Hyperlipidemia, unspecified; I10 Essential (primary) hypertension; E03.9 Hypothyroidism, unspecified; N40.0 Benign prostatic hyperplasia without lower urinary tract symptoms; K51.311 Ulcerative (chronic) rectosigmoiditis with rectal bleeding; E11.49 Type 2 diabetes mellitus with other diabetic neurological complication; K51.90 Ulcerative colitis, unspecified, without complications; Z12.5 Encounter for screening for malignant neoplasm of prostate | CPT/HCPCS: 80053; 83036; 84443; 85025; 86140; G0103 ==

== ENCOUNTER 2023-10-22 06:00 | Outpatient (CLI) | payer MEDICARE, SELFPAY | END 2023-10-22 23:59 | disposition home or self-care (01) | LOC: SPT 10-23 08:43 | PROVIDERS: Visit Provider Nurse Practitioner | DX: Z46.89 Encounter for fitting and adjustment of other specified devices (principal); M17.11 Unilateral primary osteoarthritis, right knee | CPT/HCPCS: 20610; 97760; 99204; J1100; J3301; J3490; L1852 ==

== ENCOUNTER 2023-10-28 09:28 | Oncology outpatient (recurring) (ONCR) | payer MEDICARE, SELFPAY ==
[2023-10-28 09:54] VITALS: BP 117/64; PULSE 55; RESP 18; TEMP 36.8; O2SAT 95
[2023-10-28] MEDS: acetaminophen 325 mg Tablet 650 MG PO (10:21)
[2023-10-28] MEDS: diphenhydrAMINE 50 mg/mL SDV 1mL 25 MG IVP (10:21)
[2023-10-28] MEDS: sodium chloride 0.9% 250 ML 75 ML IV (10:22)
[2023-10-28] MEDS: vedolizumab 300 MG in sodium chloride 0.9% 250 ML 500 MG IV (10:34)
[2023-10-28 11:23] VITALS: BP 125/73; PULSE 55; RESP 16; TEMP 36.6; O2SAT 95
== END 2023-11-20 23:59 | disposition home or self-care (01) ==
PROVIDERS: Visit Provider Family Medicine Adult Medicine
DX: K51.311 Ulcerative (chronic) rectosigmoiditis with rectal bleeding (principal)
CPT/HCPCS: 96375; 96413; J1200; J3380; J7050

== ENCOUNTER → 2023-12-15 10:13 | Outpatient (BNVA) | payer MEDICARE, SELFPAY | PROVIDERS: PCP Family Medicine Adult Medicine; Visit Provider Nurse Practitioner | DX: M17.0 Bilateral primary osteoarthritis of knee (principal) | CPT/HCPCS: 73560; 73565; 99214 ==

== ENCOUNTER 2024-01-06 09:47 | Oncology outpatient (recurring) (ONCR) | payer MEDICARE, SELFPAY ==
[2024-01-06] MEDS: sodium chloride 0.9% 250 ML 75 ML IV (11:42)
[2024-01-06] MEDS: diphenhydrAMINE 50 mg/mL SDV 1mL 25 MG IVP (11:42)
[2024-01-06] MEDS: acetaminophen 325 mg Tablet 650 MG PO (11:42)
[2024-01-06] MEDS: vedolizumab 300 MG in sodium chloride 0.9% 250 ML 500 MG IV (12:02)
[2024-01-06 12:33] VITALS: BP 121/70; PULSE 54; O2SAT 96
== END 2024-01-20 23:59 | disposition home or self-care (01) ==
LOC: ONCMED 09:48
PROVIDERS: PCP Family Medicine Adult Medicine; Visit Provider Family Medicine Adult Medicine
DX: K51.311 Ulcerative (chronic) rectosigmoiditis with rectal bleeding (principal)
CPT/HCPCS: 96375; 96413; J1200; J3380; J7050

== ENCOUNTER → 2024-01-09 08:36 | Outpatient (BNVA) | payer MEDICARE, SELFPAY | PROVIDERS: PCP Family Medicine Adult Medicine; Visit Provider Specialist | DX: M17.11 Unilateral primary osteoarthritis, right knee (principal); Z71.89 Other specified counseling | CPT/HCPCS: 20610; J7327 ==

== ENCOUNTER 2024-03-02 09:15 | Oncology outpatient (recurring) (ONCR) | payer MEDICARE, SELFPAY ==
[2024-03-02 09:20] VITALS: BP 124/76; PULSE 62; RESP 18; TEMP 36.7; O2SAT 96
[2024-03-02] MEDS: sodium chloride 0.9% 250 ML 75 ML IV (09:36)
[2024-03-02] MEDS: acetaminophen 325 mg Tablet 650 MG PO (09:36)
[2024-03-02] MEDS: diphenhydrAMINE 50 mg/mL SDV 1mL 25 MG IVP (09:38)
[2024-03-02] MEDS: vedolizumab 300 MG in sodium chloride 0.9% 250 ML 500 MG IV (10:10)
[2024-03-02 10:50] VITALS: BP 119/73; PULSE 52; RESP 16; TEMP 36.5; O2SAT 98
== END 2024-03-21 23:59 | disposition home or self-care (01) ==
PROVIDERS: PCP Family Medicine Adult Medicine; Visit Provider Family Medicine Adult Medicine
DX: K51.90 Ulcerative colitis, unspecified, without complications (principal); Z53.9 Procedure and treatment not carried out, unspecified reason
CPT/HCPCS: 96375; 96413; J1200; J3380; J7050

== ENCOUNTER → 2024-03-04 10:18 | Outpatient (BNVA) | payer MEDICARE, SELFPAY | PROVIDERS: PCP Family Medicine Adult Medicine; Visit Provider Family Medicine Adult Medicine | DX: E11.42 Type 2 diabetes mellitus with diabetic polyneuropathy (principal); Z79.4 Long term (current) use of insulin; E03.9 Hypothyroidism, unspecified; E78.5 Hyperlipidemia, unspecified; I10 Essential (primary) hypertension; N18.2 Chronic kidney disease, stage 2 (mild); K51.90 Ulcerative colitis, unspecified, without complications; E66.01 Morbid (severe) obesity due to excess calories; Z68.38 Body mass index [BMI] 38.0-38.9, adult; Z79.899 Other long term (current) drug therapy | CPT/HCPCS: 80053; 83036; 84443; 85025; 86140 ==

== ENCOUNTER 2024-06-16 14:43 | Oncology outpatient (recurring) (ONCR) | payer MEDICARE, SELFPAY ==
[2024-06-16] MEDS: sodium chloride 0.9% 250 ML 75 ML IV (15:45)
[2024-06-16] MEDS: diphenhydrAMINE 50 mg/mL SDV 1mL 25 MG IVP (15:47)
[2024-06-16] MEDS: vedolizumab 300 MG in sodium chloride 0.9% 250 ML 500 MG IV (16:25)
== END 2024-06-21 23:59 | disposition home or self-care (01) ==
PROVIDERS: PCP Family Medicine Adult Medicine; Visit Provider Family Medicine Adult Medicine
DX: K51.90 Ulcerative colitis, unspecified, without complications (principal); Z79.620 Long term (current) use of immunosuppressive biologic
CPT/HCPCS: 96375; 96413; J1200; J3380; J7050

== ENCOUNTER 2024-08-11 10:40 | Oncology outpatient (recurring) (ONCR) | payer MEDICARE, SELFPAY ==
[2024-08-11 11:05] VITALS: BP 149/70; PULSE 86; RESP 18; TEMP 36.2; O2SAT 92
[2024-08-11] MEDS: vedolizumab 300 MG in sodium chloride 0.9% 250 ML 500 MG IV (11:42)
[2024-08-11 11:46] LABS: Basophils # 0.1 10^3/uL (0.0-0.1); Basophils % 0.7 %; Eosinophils # 0.3 10^3/uL (0.0-0.8); Eosinophils % 3.2 %; Hematocrit 46.4 % (37-53); Lymphocytes # 1.9 10^3/uL (0.8-4.8); Lymphocytes % 22.8 %; Mean Corpuscular HGB Conc 33.4 g/dL (30-55); Mean Corpuscular Hemoglobin 30.9 pg (27-33); Mean Corpuscular Volume 92.6 fl (82-101); Mean Platelet Volume 10.9 fL (7.4-10.4); Monocytes # 0.5 10^3/uL (0.2-0.9); Neutrophils # 5.43 10^3/uL (1.8-7.7); Neutrophils % 66.8 %; Nucleated Red Blood Cells % 0 %; Platelet Count 290 10^3/cmm (157-399); Red Blood Count 5.01 10^6/uL (3.85-5.65); Red Cell Distribution Width 12.5 % (12.1-15.1); White Blood Count 8.13 10^3/uL (3.29-11.43)
[2024-08-11 12:00] LABS: Alanine Aminotransferase 56 U/L (0-41); Albumin Level 4.1 g/dL (3.5-5.2); Alkaline Phosphatase 81 U/L (40-130); Aspartate Amino Transferase 52 U/L (0-40); Blood Urea Nitrogen 9 mg/dL (8-23); Calcium 9.3 mg/dL (8.5-10.5); Carbon Dioxide 26 mmol/L (22-29); Chloride 101 mmol/L (98-107); Creatinine Clr Calc Pharmacy 96.9704; Globulin 3.6 g/dL (1.3-4.6); Glomerular Filtration Rate 74.8 mL/min (90-130); Glucose 114 mg/dL (65-115); Osmolality Calculated 288 mOsm/kg (285-295); Sodium 139 mmol/L (136-145); Total Bilirubin 0.5 mg/dL (0.15-1.2); Total Protein 7.7 g/dL (6.6-8.7)
[2024-08-11 12:17] LABS: Anion Gap 16.2 (5-19); Potassium 4.2 mmol/L (3.5-5.1)
[2024-08-11 12:29] VITALS: BP 124/70; PULSE 53; TEMP 36.4; O2SAT 96
== END 2024-08-21 23:59 | disposition home or self-care (01) ==
PROVIDERS: PCP Family Medicine Adult Medicine; Visit Provider Family Medicine Adult Medicine
DX: K51.90 Ulcerative colitis, unspecified, without complications (principal); Z79.899 Other long term (current) drug therapy; Z53.9 Procedure and treatment not carried out, unspecified reason
CPT/HCPCS: 80053; 85025; 86140; 96413; J3380; J7050

== ENCOUNTER → 2024-09-20 11:36 | Outpatient (BNVA) | payer MEDICARE, SELFPAY | PROVIDERS: PCP Family Medicine; Visit Provider Family Medicine | DX: I10 Essential (primary) hypertension; E78.2 Mixed hyperlipidemia; E03.9 Hypothyroidism, unspecified; E11.49 Type 2 diabetes mellitus with other diabetic neurological complication | CPT/HCPCS: 80061; 82043; 83036; 84439; 84443 ==

== ENCOUNTER 2024-10-06 10:24 | Oncology outpatient (recurring) (ONCR) | payer MEDICARE, SELFPAY ==
[2024-10-06 11:20] VITALS: BP 114/70; PULSE 54; RESP 18; TEMP 36.5; O2SAT 95
[2024-10-06] MEDS: sodium chloride 0.9% 250 ML 75 ML IV (11:33)
[2024-10-06] MEDS: vedolizumab 300 MG in sodium chloride 0.9% 250 ML 500 MG IV (12:08)
[2024-10-06 12:58] VITALS: BP 125/77; PULSE 53; RESP 17; TEMP 36.4; O2SAT 98
== END 2024-10-22 23:59 | disposition home or self-care (01) ==
PROVIDERS: PCP Family Medicine; Visit Provider Family Medicine Adult Medicine
DX: K51.90 Ulcerative colitis, unspecified, without complications (principal); Z79.899 Other long term (current) drug therapy
CPT/HCPCS: 96413; J3380; J7050

== ENCOUNTER → 2024-10-11 07:11 | Outpatient (BNVA) | payer MEDICARE, SELFPAY | PROVIDERS: PCP Family Medicine; Referring Provider Family Medicine; Visit Provider Surgery | DX: K51.311 Ulcerative (chronic) rectosigmoiditis with rectal bleeding (principal) | CPT/HCPCS: 99214 ==

== ENCOUNTER 2024-10-20 09:07 | Day surgery (SDC) | payer MEDICARE, SELFPAY ==
[2024-10-20 09:25] VITALS: BP 142/78; PULSE 88; RESP 16; TEMP 36.4; O2SAT 97; BMI 38.5
[2024-10-20] MEDS: sodium chloride 0.9% 500 ML 15 ML IV (09:30)
[2024-10-20 09:44] LABS: Glucose Point of Care 184 mg/dL (70-110)
--- NOTE | 2024-10-20 10:21 | ANES.PREANE2 ---
Pre-Anesthetic Assessment Height/Weight: Height 1.78 m Weight 122.016 kg Temp Pulse Resp BP Pulse Ox O2 Del Method 97.5 F L 88 16 142/78 97 Room Air 10/20/24 09:25 10/20/24 09:25 10/20/24 09:25 10/20/24 09:25 10/20/24 09:25 10/20/24 09:25 Preop Diagnosis: ulcerative colitis Operation Date: 10/20/24 11:00 Proposed Procedures p colonoscopy with random biopsies 92090, G0105, K51.311(Not Applicable) - Richardson Patterson DO Familial anesthetic complications: none Was Beta Helene taken within 24 hours: Yes Last intake: Intake Last Liquid Date 10/19/24 Last Liquid Time 23:59 Last Solid Date 10/18/24 Last Solid Time 23:59 Social No alcohol and No tobacco Exam alert, oriented x 3, clear to auscultation bilaterally and regular rate & rhythm Airway Submandibular: within normal limits Cervical ROM: within normal limits Mallampati: Class II Dentition: false Pulmonary None reported CV/HEM Coronary Artery Disease, Hypertension and Myocardial Infarction (age 44) None reported Hepatic None reported GI Gastroesophageal Reflux Disease UC Metabolic Diabetes Mellitus, Hyperlipidemia and Thyroid Disease Musc/skel Osteoarthritis/DJD Neuropsych None reported Anesthetic Plan ASA status: 3 Anesthesia: MAC Medications/Allergies Home Medications Medication Instructions Recorded Confirmed Last Taken Type glucose 4 gram chewable tablet 16 g PO Q15M PRN Hypoglycemia 04/02/21 10/18/24 10/19/24 History aspirin 81 mg tablet,delayed 81 mg PO DAILY #90 tabs 11/25/22 10/18/24 10/19/24 Rx release (Adult Aspirin Regimen) omega-3 fatty acids-fish oil 360 1 cap PO BID cholesterol #100 caps 03/18/23 10/18/24 10/19/24 Rx mg-1,200 mg capsule (Fish Oil) custom molded functional orthotics #1 ea 03/19/23 10/11/24 07/07/23 Rx (copolymer) blood sugar diagnostic (Accu-Chek #100 ea 03/20/23 10/11/24 07/07/23 Rx Guide test strips) [employer] BR[employer] RIGHT #1 ea 10/22/23 10/11/24 10/19/24 Rx diclofenac sodium 1 % topical gel 4 g topical QID #100 grams 10/22/23 10/18/24 10/19/24 Rx vedolizumab 300 mg intravenous 300 mg IV .Q8w rectal bleeding #1 08/11/24 10/18/24 10/19/24 Rx solution (Entyvio) ea isosorbide mononitrate 60 mg 60 mg PO BID #180 tabs 09/20/24 10/18/24 10/20/24 06:00 Rx tablet,extended release 24 hr rosuvastatin 20 mg tablet 20 mg PO DAILY #90 tabs 09/20/24 10/18/24 10/19/24 Rx levothyroxine 175 mcg tablet 175 mcg PO DAILY #60 tabs 09/21/24 10/18/24 10/19/24 Rx ondansetron 8 mg disintegrating 8 mg PO Q8H PRN nausea and 10/11/24 10/18/24 10/19/24 Rx tablet vomiting #7 tabs cetirizine 10 mg tablet (Allergy 10 mg PO DAILY PRN Allergy Symptoms 10/18/24 10/18/24 10/19/24 History Relief (cetirizine)) empagliflozin 25 mg tablet 25 mg PO DAILY 10/18/24 10/18/24 10/19/24 History (Jardiance) gabapentin 100 mg capsule 100 mg PO TID 10/18/24 10/18/24 10/19/24 History insulin glargine 100 unit/mL (3 40 unit SUBCUT DAILY 10/18/24 10/18/24 10/19/24 History mL) subcutaneous pen (Lantus Solostar U-100 Insulin) mercaptopurine 50 mg tablet 50 mg PO DAILY 10/18/24 10/18/24 10/19/24 History metoprolol tartrate 100 mg tablet 50 mg PO DAILY 10/18/24 10/18/24 10/20/24 06:00 History omeprazole 20 mg capsule,delayed 40 mg PO DAILY PRN heart burn 10/18/24 10/18/24 10/19/24 History release tamsulosin 0.4 mg capsule 0.4 mg PO DAILY 10/18/24 10/18/24 10/19/24 History Allergies Allergy/AdvReac Type Severity Reaction Status Date / Time metformin Allergy Unknown Unknown Verified 10/18/24 10:13 Penicillins Allergy Unknown Unknown Verified 10/18/24 10:13 Sulfa (Sulfonamide Allergy Unknown Unknown Verified 10/18/24 10:13 Antibiotics) terazosin Allergy Unknown Unknown Verified 10/18/24 10:13 Current Medications Generic Name Dose Route Start Last Admin Trade Name Freq PRN Reason Stop Dose Admin Sodium Chloride 500 mls @ 15 mls/hr 10/20/24 09:13 10/20/24 09:30 Sodium Chloride 0.9% IV 10/21/24 09:12 15 mls/hr .Q24H PRN Administration COLONOSCOPY FLUIDS PFSH Anesthesia Medical History Hx of myocardial infarction age 44 Type 2 diabetes mellitus Colon polyps colonoscopy 01/07/2023 Asymptomatic bradycardia Primary osteoarthritis of left knee Primary osteoarthritis of right knee Osteoarthritis Chronic knee pain CKD (chronic kidney disease) stage 2, GFR 60-89 ml/min Former smoker Diabetic neuropathy associated with type 2 diabetes mellitus Chronic liver disease Gastro-esophageal reflux disease with esophagitis Hypothyroidism Benign prostatic hyperplasia Obesity Hyperlipidemia Hypertension Ulcerative colitis Surgical History History of surgery on right wrist right History of rectal surgery rectal prolapse/hernia History of appendectomy 2004 History of colonoscopy 12/25/22 coloscopy with rectum polypectomy, previous 2018 Family History Father , AT AGE 72 Cancer large cell lung Grandmother Diabetes Mother No problems noted. Other Hypertension Social History Smoking and tobacco/nicotine status: former use of tobacco/nicotine Quit status (tobacco/nicotine): has quit using Year quit tobacco: 2009 Alcohol intake: current Alcohol intake frequency: holidays/special occasions only Substance/Drug Use: never Household members: spouse Marital status: Number of children: 2 Highest education level completed: 10th Grade Current occupational status: retired and disabled Previous occupational history: physical labor Data Anesthesia Cardiac Studies: No Data to Display
--- NOTE | 2024-10-20 11:22 | W.PM.OPSUD ---
Surgery/Procedure H&P Update DATE OF PROCEDURE: October 20, 2024 DATE H&P PERFORMED: 10/11/24 H&P UPDATE INFORMATION: I have reviewed H&P completed within last 30 days, I have examined patient prior to procedure and No changes to prior documentation PREOP DIAGNOSIS: ulcerative colitis PLANNED PROCEDURE: Operation Date: 10/20/24 11:00 Proposed Procedures p colonoscopy with random biopsies 38429, G0105, K51.311(Not Applicable) - Richardson Patterson,
[2024-10-20 11:49] VITALS: BP 111/62; PULSE 70; RESP 14; TEMP 36.1; O2SAT 92
[2024-10-20 12:04] VITALS: BP 122/81; PULSE 81; RESP 18; O2SAT 94
--- NOTE | 2024-10-20 12:15 | ANE.PACU2 ---
Inpatient post-anesthesia follow up: Airway intact: Yes Vital signs: Temperature 97.0 F Pulse Rate 81 Respiratory Rate 18 Blood Pressure 122/81 Pulse Oximetry 94 Oxygen Delivery Me thod Room Air Oxygen Flow Rate Fraction of Inspir ed Oxygen Hydration adequate: Yes Nausea and vomiting: No Pain level: 1 Mental status: Baseline
== END 2024-10-20 12:17 | disposition home or self-care (01) ==
PROVIDERS: PCP Family Medicine; Visit Provider Surgery
PROC: 0DJD8ZZ Inspection of Lower Intestinal Tract, Via Natural or Artificial Opening Endoscopic (ICD-10-PCS; CPT 45378; principal; 2024-10-20 11:00)
DX: K51.211 Ulcerative (chronic) proctitis with rectal bleeding (principal); K51.311 Ulcerative (chronic) rectosigmoiditis with rectal bleeding; I25.10 Atherosclerotic heart disease of native coronary artery without angina pectoris; I25.2 Old myocardial infarction; E78.5 Hyperlipidemia, unspecified; E07.9 Disorder of thyroid, unspecified; M19.90 Unspecified osteoarthritis, unspecified site; Z79.899 Other long term (current) drug therapy; Z79.82 Long term (current) use of aspirin; Z79.890 Hormone replacement therapy; Z79.4 Long term (current) use of insulin; Z88.8 Allergy status to other drugs, medicaments and biological substances; Z88.0 Allergy status to penicillin; Z88.2 Allergy status to sulfonamides; E11.40 Type 2 diabetes mellitus with diabetic neuropathy, unspecified; I12.9 Hypertensive chronic kidney disease with stage 1 through stage 4 chronic kidney disease, or unspecified chronic kidney disease; N18.2 Chronic kidney disease, stage 2 (mild); Z87.891 Personal history of nicotine dependence; K76.9 Liver disease, unspecified; E03.9 Hypothyroidism, unspecified; K63.5 Polyp of colon; E11.22 Type 2 diabetes mellitus with diabetic chronic kidney disease
CPT/HCPCS: 36416; 45380; 45385; 82962; 88305; J2704; J7040

== ENCOUNTER → 2024-11-04 09:47 | Outpatient (BNVA) | payer MEDICARE, SELFPAY | PROVIDERS: PCP Family Medicine; Visit Provider Surgery | DX: Z09 Encounter for follow-up examination after completed treatment for conditions other than malignant neoplasm (principal); K51.311 Ulcerative (chronic) rectosigmoiditis with rectal bleeding | CPT/HCPCS: 99214 ==

== ENCOUNTER 2024-12-01 10:33 | Oncology outpatient (recurring) (ONCR) | payer MEDICARE, SELFPAY ==
[2024-12-01 11:14] VITALS: BP 115/73; PULSE 55; TEMP 36.5; O2SAT 93
[2024-12-01] MEDS: vedolizumab 300 MG in sodium chloride 0.9% 250 ML 500 MG IV (11:46)
[2024-12-01 12:25] VITALS: BP 130/73; PULSE 60; RESP 18; TEMP 36.7; O2SAT 97
== END 2024-12-20 23:59 | disposition home or self-care (01) ==
PROVIDERS: PCP Family Medicine; Visit Provider Family Medicine Adult Medicine
DX: K51.90 Ulcerative colitis, unspecified, without complications (principal); Z79.620 Long term (current) use of immunosuppressive biologic
CPT/HCPCS: 96413; J3380; J7050

== ENCOUNTER 2024-12-10 12:48 | Outpatient (CLI) | payer MEDICARE, SELFPAY ==
[2024-12-10 13:26] LABS: Estmated Average Glucose 209; Hemoglobin A1C 8.9 % (4.0-6.0)
[2024-12-10 13:50] LABS: Free T4 Free Thyroxine 0.68 ng/dL (0.82-1.77); Thyroid Stimulating Hormone 3.97 uIU/mL (0.27-4.20)
[2024-12-10 14:58] LABS: Vitamin B12 486 pg/mL (232-1245)
== END 2024-12-10 12:49 | disposition home or self-care (01) ==
LOC: LAB 12:49
PROVIDERS: PCP Family Medicine; Visit Provider Family Medicine
DX: Z79.4 Long term (current) use of insulin (principal); E11.65 Type 2 diabetes mellitus with hyperglycemia; E03.9 Hypothyroidism, unspecified; I10 Essential (primary) hypertension; K51.311 Ulcerative (chronic) rectosigmoiditis with rectal bleeding; E11.49 Type 2 diabetes mellitus with other diabetic neurological complication
CPT/HCPCS: 36415; 82607; 83036; 84439; 84443; 85025

== ENCOUNTER 2025-01-26 08:43 | Oncology outpatient (recurring) (ONCR) | payer MEDICARE, SELFPAY ==
[2025-01-26] MEDS: vedolizumab 300 MG in sodium chloride 0.9% 250 ML 500 MG IV (09:56)
[2025-01-26 10:40] VITALS: BP 112/61; PULSE 84; RESP 16; TEMP 36.9; O2SAT 98
== END 2025-02-19 23:59 | disposition home or self-care (01) ==
PROVIDERS: PCP Family Medicine; Visit Provider Family Medicine Adult Medicine
DX: K51.90 Ulcerative colitis, unspecified, without complications (principal); Z79.620 Long term (current) use of immunosuppressive biologic
CPT/HCPCS: 96413; J3380; J7050

== ENCOUNTER → 2025-03-14 12:23 | Outpatient (BNVA) | payer MEDICARE, SELFPAY | PROVIDERS: PCP Family Medicine; Visit Provider Family Medicine | DX: E11.65 Type 2 diabetes mellitus with hyperglycemia (principal); Z79.4 Long term (current) use of insulin; E03.9 Hypothyroidism, unspecified | CPT/HCPCS: 83036; 84443 ==

== ENCOUNTER 2025-03-23 10:30 | Oncology outpatient (recurring) (ONCR) | payer MEDICARE, SELFPAY ==
[2025-03-23 11:00] VITALS: BP 127/67; PULSE 68; RESP 16; TEMP 36.3; O2SAT 95
[2025-03-23 12:06] VITALS: BP 100/62; PULSE 54; RESP 16; TEMP 35.8; O2SAT 94
== END 2025-04-21 23:59 | disposition home or self-care (01) ==
PROVIDERS: PCP Family Medicine; Visit Provider Family Medicine Adult Medicine
DX: K51.90 Ulcerative colitis, unspecified, without complications (principal); Z79.620 Long term (current) use of immunosuppressive biologic; Z79.899 Other long term (current) drug therapy
CPT/HCPCS: 96413; J3380; J7050

== ENCOUNTER 2025-05-19 10:26 | Oncology outpatient (recurring) (ONCR) | payer MEDICARE, SELFPAY ==
[2025-05-19 12:26] VITALS: BP 128/68; PULSE 58; RESP 16; TEMP 36.4; O2SAT 98
== END 2025-05-22 23:59 | disposition home or self-care (01) ==
PROVIDERS: PCP Family Medicine; Visit Provider Internal Medicine
DX: K51.90 Ulcerative colitis, unspecified, without complications (principal); Z79.620 Long term (current) use of immunosuppressive biologic; Z79.899 Other long term (current) drug therapy
CPT/HCPCS: 96413; J3380; J7050

== ENCOUNTER 2025-06-09 08:08 | Oncology outpatient (recurring) (ONCR) | payer MEDICARE, SELFPAY ==
--- NOTE | 2025-06-09 08:45 | USCV_ITS ---
Gerhard Carpio Age: 69 Gender: M : 1955 Exam Date: 06/09/2025 08:57 Ordering Phys: Maranda Magana MD Technologist: GALILEO Exam Location: [facility] [place] Indication: AAA screening HISTORY: Diameter (cm) AP x Transverse x Length Velocity (cm/s) Waveform Prox Aorta: 1.68 x 1.96 x 67.60 Triphasic Mid Aorta: 1.26 x 1.49 x 76.80 Triphasic Distal Aorta: 1.12 x 1.15 x 87.40 Triphasic Right Iliac Prox: 0.90 x 1.05 x 76.00 Triphasic Left Iliac Prox: 1.07 x 1.13 x 79.50 Triphasic Stent Prox Landing x x Aneurysmal Sac Max x x Lt Lat Sac Dim Rt Lat Sac Dim Stent Dist Landing x x Right Iliac Stent x x Left Iliac Stent x x Right Renal Art Left Renal Art FINDINGS: Comparison: none available. A complete assessment of the abdominal aorta was not possible. Atherosclerotic plaque is noted in the abdominal aorta. Ectatic abdominal aorta with evidence of atherosclerotic plaque noted. No evidence of abdominal aortic or bilateral iliac aneurysm. CONCLUSIONS No evidence of abdominal aortic or bilateral iliac aneurysm. Dr. Michelle Sanchez DO (Electronically Signed) Final Date: 09 June 2025 10:15 S
== END 2025-06-21 23:59 | disposition home or self-care (01) ==
LOC: RAD 08:10 → ONCMED 09:21
PROVIDERS: PCP Family Medicine; Visit Provider Internal Medicine
DX: Z13.6 Encounter for screening for cardiovascular disorders (principal); I70.0 Atherosclerosis of aorta; I77.811 Abdominal aortic ectasia
CPT/HCPCS: 76706

== ENCOUNTER → 2025-07-08 12:16 | Outpatient (BNVA) | payer MEDICARE, SELFPAY | PROVIDERS: PCP Family Medicine; Visit Provider Family Medicine | DX: E11.49 Type 2 diabetes mellitus with other diabetic neurological complication (principal); E11.65 Type 2 diabetes mellitus with hyperglycemia; Z79.4 Long term (current) use of insulin | CPT/HCPCS: 83036 ==